=== PATIENT | male | born 1965 | race Caucasian/White ===

== ENCOUNTER 2016-05-05 11:50 | Emergency (ER) | payer OTHER ==
[~2016-05-05] VITALS: Ht 175.3 cm; Wt 82.0 kg
[2016-05-05 11:53] VITALS: BP 158/85; PULSE 86; RESP 20; TEMP 98; O2SAT 100
[2016-05-05] MEDS ORDERED: LEVO.125 PO (12:02)
[2016-05-05] MEDS ORDERED: AMLO5TAB2 PO (12:02)
[2016-05-05] MEDS ORDERED: DIPHTH/TETANUS/ACEL PERTUSSIS (BOOSTER) 0.5 ML VIAL/PFS IM ONE (12:15)
[2016-05-05] MEDS ORDERED: MORPHINE SULFATE 4 MG/ML INJ IM ONE (12:15)
[2016-05-05] MEDS ORDERED: LIDOCAINE 1%/EPINEPHrine 1:100,000 SOLN 20 ML VIAL INFIL ONE (12:15)
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
[2016-05-05] MEDS ORDERED: BACT800T5 PO (14:54)
[2016-05-05] MEDS ORDERED: NORC5TAB PO (14:54)
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
== END 2016-05-05 15:48 | disposition home or self-care (01) ==
LOC: NEPC 11:50
DX: S31.811A Laceration without foreign body of right buttock, initial encounter (principal); S80.212A Abrasion, left knee, initial encounter; S60.012A Contusion of left thumb without damage to nail, initial encounter; I10 Essential (primary) hypertension; E07.9 Disorder of thyroid, unspecified; Z23 Encounter for immunization; V29.88XA Motorcycle rider (driver) (passenger) injured in other specified transport accidents, initial encounter; Y93.89 Activity, other specified; Y92.410 Unspecified street and highway as the place of occurrence of the external cause; Y99.8 Other external cause status
CPT/HCPCS: 12035; 73130; 73502; 90471; 90715; 96372; 99283; J2270